=== PATIENT | female | born 1965 | race Caucasian/White ===

== ENCOUNTER 2018-05-23 14:59 | Emergency (ER) | payer MEDICAID ==
[2018-05-23 19:40] LABS: ADD MAN DIFF? NO
[2018-05-23 19:42] LABS: WHITE BLOOD COUNT 6.9 10^3/ul (4.8-10.8)
[2018-05-23 19:42] LABS: BASOPHILS % 0.3 % (0.0-2.0); EOSINOPHILS % 0.6 % (0.0-7.0); HEMATOCRIT 41.5 % (37.0-47.0); HEMOGLOBIN 13.9 g/dl (12.0-16.0); LYMPHOCYTES # 1.3 10^3/ul (0.8-2.9); LYMPHOCYTES % 18.7 % (15.0-51.0); MEAN CORPUSCULAR HEMOGLOBIN 31.7 pg (29.0-33.0); MEAN CORPUSCULAR HGB CONC 33.5 g/dl (32.0-37.0); MEAN CORPUSCULAR VOLUME 94.5 fl (82.0-101.0); MEAN PLATELET VOLUME 10.7 fl (7.4-10.4); MONOCYTE # 0.4 10^3/ul (0.3-0.9); MONOCYTES % 6.1 % (0.0-11.0); NEUTROPHIL # 5.1 10^3/ul (1.6-7.5); PLATELET COUNT 215 10^3/UL (140-415); RED BLOOD COUNT 4.39 10^6/ul (4.20-5.40); RED CELL DISTRIBUTION WIDTH 12.5 % (11.5-14.5)
[2018-05-23] MEDS: ONDANSETRON 4 MG INJ IV (19:53)
[2018-05-23] MEDS: SOD CHLORIDE 0.9% 1,000 ML IV (19:53)
[2018-05-23] MEDS: MECLIZINE 12.5 MG TAB PO (19:54)
[2018-05-23 19:58] LABS: ADD UMIC YES; UR ASCORBIC ACID NEGATIVE (NEGATIVE); UR BACTERIA FEW /HPF (NONE SEEN); UR BILIRUBIN (Dip) NEGATIVE (NEGATIVE); UR BLOOD (Dip) 1+ mg/dL (NEGATIVE); UR CLARITY CLOUDY (CLEAR); UR COLOR YELLOW (YELLOW); UR GLUCOSE (Dip) NEGATIVE (NEGATIVE); UR KETONES (Dip) NEGATIVE (NEGATIVE); UR LEUKOCYTE ESTERASE (Dip) NEGATIVE Leu/ul (NEGATIVE); UR MUCUS FEW /HPF (NONE SEEN); UR NITRITE (Dip) NEGATIVE (NEGATIVE); UR RBC 7 /HPF (0-5); UR SPECIFIC GRAVITY (Dip) 1.015 (1.003-1.030); UR SQUAMOUS EPITHELIAL CELL FEW /HPF (FEW); UR TOTAL PROTEIN (Dip) NEGATIVE (NEGATIVE); UR UROBILINOGEN (Dip) NEGATIVE (NEGATIVE); UR WBC 8 /HPF (0-5)
[2018-05-23 20:00] LABS: AMPHETAMINE/METHAMPHETAMINE Negative (NEGATIVE); ANION GAP 18 (8-16); BARBITURATES Negative (NEGATIVE); BENZODIAZEPINES Negative (NEGATIVE); BLOOD UREA NITROGEN 15 mg/dl (7-20); CALCIUM 10.3 mg/dl (8.4-10.2); CANNABINOIDS Negative (NEGATIVE); CARBON DIOXIDE 28 mmol/L (21-31); CHLORIDE 103 mmol/L (97-110); CHOL/HDL RATIO 5.5 RATIO; CHOLESTEROL 242 mg/dl (100-200); COCAINE Negative (NEGATIVE); CREATININE 0.67 mg/dl (0.44-1.00); GLUCOSE 99 mg/dl (70-220); HDL CHOLESTEROL 44 mg/dl (37-92); LDL CHOLESTEROL,CALCULATED 154 mg/dl; OPIATES Negative (NEGATIVE); SODIUM 145 mmol/L (135-144); TRIGLYCERIDES 221 mg/dl (0-149)
[2018-05-23 20:01] LABS: INR 0.89; PROTIME 12.1 Sec (11.9-14.9); PT RATIO 0.9
[2018-05-23 20:02] LABS: PARTIAL THROMBOPLASTIN TIME 26.1 Sec (25.0-35.0)
[2018-05-23 20:10] LABS: TROPONIN-I < 0.012 ng/ml (0.000-0.120)
== END 2018-05-23 21:30 | disposition home or self-care (01) ==
LOC: E/R 14:59
DX: R42 Dizziness and giddiness (principal); R07.9 Chest pain, unspecified
CPT/HCPCS: 36415; 70450; 71045; 80048; 80061; 80307; 81001; 83036; 84484; 85025; 85610; 85730; 93005; 96374; 99285-25

== ENCOUNTER 2019-01-23 14:32 | Emergency (ER) | payer MEDICAID ==
[2019-01-23] MEDS: MECLIZINE 12.5 MG TAB PO (17:45)
[2019-01-23] MEDS: ONDANSETRON (ODT) 4 MG TAB ODT (17:45)
[2019-01-23] MEDS: LORAZEPAM 0.5 MG TAB PO (17:45)
== END 2019-01-23 18:08 | disposition home or self-care (01) ==
LOC: FTE 18:08
DX: H81.10 Benign paroxysmal vertigo, unspecified ear (principal); Z85.3 Personal history of malignant neoplasm of breast
CPT/HCPCS: 99283; Z7610